=== PATIENT | female | born 1985 | race Caucasian/White ===

== ENCOUNTER 2016-08-22 12:02 | Emergency (ER) | payer OTHER ==
[~2016-08-22] VITALS: Ht 163.8 cm; Wt 76.2 kg
== END 2016-08-22 14:22 | disposition short-term general hospital (02) ==
LOC: ER 12:02
DX: N61.0 Mastitis without abscess (principal); F17.210 Nicotine dependence, cigarettes, uncomplicated
CPT/HCPCS: J0696